=== PATIENT | female | born 1995 | race American Indian/Alaskan Native ===

== ENCOUNTER 2017-04-05 21:02 | Emergency (ER) | payer SELFPAY ==
[2017-04-05 23:11] LABS: Basophils % (Auto) 0.3 % (0.0-1.8); Hematocrit 40.4 % (30.3-42.9); Hemoglobin 13.1 gm/dl (10.1-14.3); Mean Corpuscular HGB Conc 32 % (30-34); Mean Corpuscular Hemoglobin 29 pg (28-32); Mean Corpuscular Volume 88 fl (79-97); Platelet Count 194 K/mm3 (140-440); Red Blood Count 4.58 M/mm3 (3.65-5.03); Red Cell Distribution Width 13.3 % (13.2-15.2); White Blood Count 9.6 K/mm3 (4.5-11.0)
[2017-04-05 23:32] LABS: Alanine Aminotransferase 14 units/L (7-56); Albumin/Globulin Ratio 1.1 %; Alkaline Phosphatase 58 units/L (35-129); Anion Gap 17 mmol/L; Blood Urea Nitrogen 7 mg/dL (7-17); Calcium 9.4 mg/dL (8.4-10.2); Carbon Dioxide 25 mmol/L (22-30); Chloride 96.8 mmol/L (98-107); Glucose 97 mg/dL (65-100); Lipase 39 units/L (13-60); Sodium 135 mmol/L (137-145); Total Protein 7.5 g/dL (6.3-8.2)
[2017-04-05] MEDS ORDERED: ZOFRAN IV ONE (23:47)
[2017-04-05] MEDS ORDERED: MORPHINE IV ONE (23:47)
[2017-04-05] MEDS ORDERED: NACL 0.9% 1000 ML 1,000 ML IV ONE (23:47)
--- NOTE | 2017-04-05 23:57 | Emergency Department Report ---
ED Abdominal Pain HPI - General Chief Complaint: Abdominal Pain Stated Complaint: RT LOWER SIDE PAIN Time Seen by Provider: 04/05/17 23:20 Source: patient, family Mode of arrival: Ambulatory Limitations: No Limitations - History of Present Illness Initial Comments: 21-year-old female presents to the emergency department complaining of abdominal pain. Patient states she noticed abdominal pain this morning when she woke up at approximately 7 AM. Patient describes sharp pain in her right lower abdomen that does not radiate. Pain has been constant since onset and has been getting worse. Fever and nausea. She has vomited one time. She states her pain gets worse with any movement and coughing. She denies diarrhea. There are no other complaints. MD Complaint: abdominal pain -: Sudden, This morning Time: 07:00 Location: RLQ Radiation: none Migration to: no migration Severity: severe Severity scale (0 -10): 10 Quality: sharp Consistency: constant Improves With: nothing Worsens With: movement Associated Symptoms: nausea, vomiting, fever - Related Data Previous Rx's Medication Instructions Recorded Last Taken Type HYDROcodone/APAP 5-325 [[place] 1 each PO Q6HR PRN #14 tablet 04/06/17 Unknown Rx 5/325] Sulfamethoxazole/Trimethoprim 1 each PO BID #10 tablet 04/06/17 Unknown Rx [Bactrim DS TAB] Allergies Allergy/AdvReac Type Severity Reaction Status Date / Time No Known Allergies Allergy Unverified 05/14/15 01:41 ED Review of Systems ROS: Stated complaint: RT LOWER SIDE PAIN Other details as noted in HPI Comment: All other systems reviewed and negative Constitutional: fever Gastrointestinal: abdominal pain, nausea, vomiting ED Past Medical Hx - Past Medical History Previous Medical History?: No - Surgical History Past Surgical History?: No - Family History Family history: no significant - Social History Smoking Status: Never Smoker Substance Use Type: None - Medications Home Medications: Home Medications Medication Instructions Recorded Confirmed Last Taken Type HYDROcodone/APAP 5-325 [[place] 1 each PO Q6HR PRN #14 tablet 04/06/17 Unknown Rx 5/325] Sulfamethoxazole/Trimethoprim 1 each PO BID #10 tablet 04/06/17 Unknown Rx [Bactrim DS TAB] ED Physical Exam - General Limitations: No Limitations General appearance: alert, in no apparent distress - Head Head exam: Present: atraumatic, normocephalic - Eye Eye exam: Present: normal appearance, PERRL, EOMI - ENT ENT exam: Present: normal exam, normal orophraynx, mucous membranes moist - Neck Neck exam: Present: normal inspection, full ROM. Absent: tenderness - Respiratory Respiratory exam: Present: normal lung sounds bilaterally. Absent: respiratory distress - Cardiovascular Cardiovascular Exam: Present: normal rhythm, tachycardia, normal heart sounds - GI/Abdominal GI/Abdominal exam: Present: soft, tenderness (moderate tenderness to palpation in the right lower quadrant), rebound, normal bowel sounds. Absent: distended, guarding - Extremities Exam Extremities exam: Present: normal inspection, full ROM. Absent: tenderness - Back Exam Back exam: Present: normal inspection, full ROM. Absent: tenderness - Neurological Exam Neurological exam: Present: alert, oriented X3. Absent: motor sensory deficit - Skin Skin exam: Present: warm, dry, intact ED Course Vital Signs 04/05/17 22:19 Temperature 100.2 F H Pulse Rate 107 H Respiratory 22 Rate Blood Pressure 129/80 [Right] O2 Sat by Pulse 100 Oximetry ED Medical Decision Making - Lab Data Result diagrams: 04/05/17 22:50 04/05/17 22:50 - Radiology Data Radiology results: report reviewed, image reviewed CT of the abdomen and pelvis shows several small lymph nodes consistent with mesenteric adenitis. There is also a small amount of nonspecific free fluid in the pelvis. The appendix is normal. There are no other abnormalities. - Medical Decision Making Lab and imaging results reviewed and discussed with the patient and mother. Patient reports feeling better with medication. Patient will be discharged home at this time on oral anti-biotics with pain medication to follow-up with her primary care physician. - Differential Diagnosis abdominal pain, appendicitis, UTI Critical care attestation.: If time is entered above; I have spent that time in minutes in the direct care of this critically ill patient, excluding procedure time. ED Disposition Clinical Impression: Mesenteric adenitis UTI (urinary tract infection) Qualifiers: Urinary tract infection type: acute cystitis Hematuria presence: without hematuria Qualified Code(s): N30.00 - Acute cystitis without hematuria Disposition: TO HOME OR SELFCARE Is pt being admited?: No Condition: Stable Instructions: Urinary Tract Infection in Women (ED), Mesenteric Adenitis (ED) Prescriptions: HYDROcodone/APAP 5-325 [[place] 5/325] 1 each PO Q6HR PRN #14 tablet PRN Reason: Pain Sulfamethoxazole/Trimethoprim [Bactrim DS TAB] 1 each PO BID #10 tablet Referrals: PRIMARY CARE, [Primary Care Provider] - 3-5 Days Time of Disposition: 02:25
[2017-04-06] MEDS: TYLENOL PO ONE ×2 (00:14→00:15)
[2017-04-06 01:15] LABS: Bacteria,Urine 1+ /HPF (Negative); Bilirubin,Urine NEG (Negative); Blood,Urine SM (Negative); Ketones,Urine 20 mg/dL (Negative); Leukocyte Esterase,Urine TR (Negative); Mucus,Urine 1+ /HPF; Nitrite,Urine POS (Negative); Protein,Urine <15 mg/dL mg/dL (Negative); Urobilinogen,Urine < 2.0 mg/dL (<2.0)
--- NOTE | 2017-04-06 02:15 | Cat Scan Report ---
FINAL REPORT PROCEDURE: CT ABDOMEN PELVIS WO CON TECHNIQUE: Computerized axial tomography of the abdomen and pelvis was performed without intravenous contrast. This study is performed without intravascular contrast material and its sensitivity for abdominal and pelvic pathology, including neoplasms, inflammation, abscess, free fluid, thrombosis, arterial dissection and infarction, is reduced compared with a contrast enhanced study. HISTORY: rlq pain COMPARISON: No prior studies are available for comparison. FINDINGS: Visualized lower thorax: No significant abnormality. Liver: Normal size and attenuation. Spleen: Normal size and attenuation. Gallbladder and biliary system: Normal. Pancreas: Normal. Adrenals: Normal. Kidneys: There are no kidney or ureteral stones. There is no hydronephrosis.. GI tract: The appendix is normal. There is no bowel obstruction, colitis or enteritis.. Lymph nodes and mesentery: There are borderline prominent mesenteric lymph nodes which are nonspecific or could be compatible with mesenteric adenitis.. Vasculature: Normal. Bladder: Normal. Reproductive organs: The uterus is unremarkable. There is a cyst in the left ovary measuring 2.7 centimeters.. Peritoneum: There is free pelvic fluid which is nonspecific. There is no free air.. Musculoskeletal structures: No significant abnormality. Other: None. IMPRESSION: There are no kidney or ureteral stones. There is no hydronephrosis.. The appendix is normal. There is no bowel obstruction, colitis or enteritis.. There are borderline prominent mesenteric lymph nodes which are nonspecific or could be compatible with mesenteric adenitis.. The uterus is unremarkable. There is a cyst in the left ovary measuring 2.7 centimeters.. There is free pelvic fluid which is nonspecific. There is no free air.. .
[2017-04-06] MEDS ORDERED: MORPHINE IV ONE (02:22)
[2017-04-06 03:59] VITALS: BP 107/59
== END 2017-04-06 03:33 | disposition home or self-care (01) ==
LOC: ED 21:02
DX: I88.0 Nonspecific mesenteric lymphadenitis (principal); N39.0 Urinary tract infection, site not specified
CPT/HCPCS: 36415; 74176; 80053; 81001; 83690; 84703; 85025; 96361; 96374; 96375; 96376; 99284; J2270; J2405; J7030